=== PATIENT | female | born 2005 | race Two or more races ===

== ENCOUNTER → 2023-06-25 | Emergency (ER) | payer OTHER ==
[~2023-06-25] VITALS: Ht 154.9 cm; Wt 54.4 kg
== END | disposition home or self-care (01) ==
LOC: ER 13:51 → EMR PED 14:00
PROVIDERS: Emergency Medicine Pediatric Emergency Medicine
DX: N76.2 Acute vulvitis (principal)
CPT/HCPCS: 36415; 96365; 99284; J0696; J1200; J1885; J2930